=== PATIENT | female | born 1960 | race Hispanic/Latino ===

== ENCOUNTER 2018-06-16 11:06 | Emergency (ER) | payer SELFPAY ==
[2018-06-16 11:13] VITALS: BP 153/86
--- NOTE | 2018-06-16 12:49 | Emergency Department Report ---
ED Rash HPI - HPI Chief Complaint: Skin Rash Stated Complaint: RIGHT HIP/INNER THIGH BURNING Duration: 1 year Suspected Cause: Unknown Rash Symptoms: Yes Itching, No Facial Swelling, No Tongue/Oral Swelling, No Breathing Difficulties, No Choking Sensation, No Wheezing/Dyspnea, No Peeling, No Blistering, No Fever, No Lightheaded, No Malaise, No Myalgias Other History: This is a 58-year-old female who presents with a rash to bilateral groin for 6 years. Patient states she was seen at [facility] told it was related to menopause. She is currently complaining of burning, redness, and increased pain with movement or touch. Patient's sensation was prescribed Premarin for 1 year with no change to area. ED Review of Systems ROS: Stated complaint: RIGHT HIP/INNER THIGH BURNING Other details as noted in HPI Constitutional: denies: chills, fever Respiratory: denies: cough, shortness of breath, wheezing Cardiovascular: denies: chest pain, palpitations Skin: rash (rash to bilateral groin). 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 06/16/18 Unknown Rx [Nystatin-Triamcinolone Cream] Rash Exam - Exam General: Vital signs noted. No distress. Alert and acting appropriately. HEENT: No Periorbital Edema, No Conjuctival Injection, No Chemosis, No Perioral Edema, No Tongue Edema, No Uvular Edema, No Compromised Airway, No Drooling Lungs: Yes Good Air Exchange (Normal Breath Sounds), No Wheezes, No Ronchi, No Stridor, No Cough, No Labored Respirations, No Retractions, No Use of Accessory Muscles, No Other Abnormal Lung Sounds Heart: Yes Regular, No Murmur Skin: Yes Maculopapular Rash (3-5 cm maculopapular rash to bilateral groins, blanchable, tender to touch), Yes Erythema, No Urticarial Rash, No Morbilliform rash, No Bulla(e), No Excoriations, No Weeping, No Tenderness, No Edema, No Encrustations ED Course Vital Signs 06/16/18 11:11 Temperature 98.4 F Pulse Rate 80 Respiratory 20 Rate Blood Pressure 153/86 O2 Sat by Pulse 98 Oximetry ED Medical Decision Making - Medical Decision Making Patient was examined by me. Vitals are normal and patient is in no acute distress. Rash of groin. Start triamcinolone/nystatin cream. Referral to Dermatology. Referral to [facility] for continued care. Patient discharged home in stable condition. Follow up with PCP in 2-3 days. Critical care attestation.: If time is entered above; I have spent that time in minutes in the direct care of this critically ill patient, excluding procedure time. ED Disposition Clinical Impression: Rash of groin Disposition: - TO HOME OR SELFCARE Is pt being admited?: No Does the pt Need Aspirin: No Condition: Stable Instructions: Acute Rash (ED) Additional Instructions: Apply a thin layer of nystatin/triamcinolone cream twice a day for 5-10 days. Wash area before applying cream twice today. Follow up with [facility]. Prescriptions: Nystatin/Triamcin [Nystatin-Triamcinolone Cream] 60 gm TP BID #1 cream..g. Referrals: [facility] [Outside] - 3-5 Days [facility] [Outside] - 3-5 Days [facility] [Outside] - 3-5 Days [facility] [Provider Group] - 3-5 Days Forms: Work/School Release Form(ED) Time of Disposition: 12:59
== END 2018-06-16 13:06 | disposition home or self-care (01) ==
LOC: ED 11:06
DX: R21 Rash and other nonspecific skin eruption (principal); L29.9 Pruritus, unspecified; F17.200 Nicotine dependence, unspecified, uncomplicated; F12.10 Cannabis abuse, uncomplicated
CPT/HCPCS: 99282